=== PATIENT | female | born 1935 | race Caucasian/White ===

== ENCOUNTER → 2016-09-24 | Outpatient (CLI) | payer OTHER, BC ==
[~2016-09-24] MED LIST: ACET-1222 PO; APIX1TAB PO; ATOR-24 PO; ESTR1CRE PV; LANS30CA12 PO; LEVO100T PO; METO25TA56 PO; MULT60CA PO; NRN100; SENN-91 PO; VALS1TAB33 PO
== END | disposition home or self-care (01) ==
LOC: C.LABVPSUW 10:18
PROVIDERS: ATTEND Internal Medicine Critical Care Medicine
DX: E03.9 Hypothyroidism, unspecified (principal)

== ENCOUNTER → 2017-04-09 | Outpatient (CLI) | payer OTHER, BC ==
[~2017-04-09] MED LIST changes: -NRN100
[2017-04-09 12:11] LABS: URINE APPEARANCE CLOUDY (CLEAR); URINE BILIRUBIN NEG (NEG); URINE COLOR YELLOW; URINE NITRITE NEG (NEG); URINE SPECIFIC GRAVITY 1.008 (1.000-1.030); UROBILINOGEN NEG (NEG)
[2017-04-09 12:15] LABS: MANUAL MICROSCOPIC REQUIRED? NO; REVIEW REQ? NO
== END | disposition home or self-care (01) ==
LOC: C.LAB 11:04
PROVIDERS: ATTEND Nurse Practitioner
DX: R30.0 Dysuria (principal)

== ENCOUNTER → 2017-05-21 | Outpatient (CLI) | payer OTHER, BC | END | disposition home or self-care (01) | LOC: C.LABSPEC 17:02 | PROVIDERS: ATTEND Internal Medicine Critical Care Medicine | DX: Z00.00 Encounter for general adult medical examination without abnormal findings (principal); N39.0 Urinary tract infection, site not specified; R31.9 Hematuria, unspecified; E78.00 Pure hypercholesterolemia, unspecified; I10 Essential (primary) hypertension; E03.9 Hypothyroidism, unspecified; M81.0 Age-related osteoporosis without current pathological fracture ==

== ENCOUNTER → 2017-06-02 | Outpatient (CLI) | payer OTHER, BC | END | disposition home or self-care (01) | LOC: C.LABSPEC 17:33 | PROVIDERS: ATTEND Urology | DX: R31.0 Gross hematuria (principal) ==

== ENCOUNTER 2017-09-09 12:32 | Emergency (ER) | payer OTHER, BC ==
[~2017-09-09] VITALS: Ht 157.5 cm; Wt 60.0 kg
[2017-09-09 12:49] VITALS: TEMP 36.7; Ht 157.5 cm; Wt 60.0 kg
[2017-09-09] MEDS ORDERED: ACET-1256 PO (13:24)
[2017-09-09] MEDS ORDERED: DVN80125 PO (13:24)
[2017-09-09] MEDS ORDERED: MULT60CA PO (13:24)
[2017-09-09] MEDS ORDERED: SENN-91 PO (13:24)
[2017-09-09] MEDS ORDERED: ATOR-24 PO (13:24)
[2017-09-09] MEDS ORDERED: APIX1TAB PO (13:24)
[2017-09-09] MEDS ORDERED: METO25TA56 PO (13:24)
[2017-09-09] MEDS ORDERED: PRMVC PV (13:24)
[2017-09-09] MEDS ORDERED: LEVO88TA PO (13:24)
[2017-09-09] MEDS ORDERED: CALC600T37 PO (13:24)
[2017-09-09] MEDS ORDERED: PRLSR20 PO (13:24)
[2017-09-09] MEDS ORDERED: NYSTCRE11 TOP (13:24)
--- NOTE | 2017-09-09 13:41 | EMERGENCY ROOM VISIT NOTE ---
"History Report prepared by Gunnar: Bob Vizcaino Under the Supervision of: Dr. Freddy Stubbs M.D. First contact with patient: 13:25 Chief Complaint: FALL Stated Complaint: HEAD INJURY, FALL ON HARD SURFACE History of Present Illness The patient is a 82 year old female who presents to the Emergency Room with complaints of fall that occurred two days ago. She has a past medical history of atrial fibrillation without any other cardiac history. The patient and her go on walks very frequently. During one of their regular walks, she accidentally experienced a fall. She does not know why she fell, but she states that she did not lose consciousness or become weak. She did not experience any abnormal symptoms at this time. She did, however, land directly on her face on the concrete. Once she checked if she could move everything, her helped her up and they were able to walk a half mile back to their house. She notes that she is on Eliquis for her atrial fibrillation, but has not been taking it over this time just in case, until she could get checked. She denies any initial epistaxis as well. Last night, the patient blew her nose and saw some old looking blood and coughed up a few specks of blood, but nothing significant. She is experiencing some facial pain and left lower extremity pain secondary to an abrasion, but no significant pain. The patient denies any vision trouble, balance trouble, fevers, headache, neck pain, chest pain, shortness of breath, abdominal pain, back pain, pain to her other extremities, weakness, or numbness. Source of History: patient, spouse/significant other Onset: two days ago Position: other (Global) Symptom Intensity: mild Quality: other (Fall) Timing: resolved Associated Symptoms: No LOC, No fevers, No headache, No neck pain, No chest pain, No SOB, No abdominal pain, No back pain, No weakness, No numbness Note: She is experiencing some facial pain and left lower extremity pain secondary to her fall. She denies any other extremity pain. She denies any trouble with her balance or vision. Review of Systems See HPI for pertinent positives & negatives. A total of 10 systems reviewed and were otherwise negative. Past Medical & Surgical Medical Problems: (1) Atrial fibrillation with RVR (2) Hypertension Old medical records were reviewed. Nurse's notes were reviewed and I agree with. Family History Diabetes mellitus Heart disease Hypertension Social History Smoking Status: Former Smoker Drug Use: none Marital Status: Housing Status: lives with family Occupation Status: retired Current/Historical Medications Scheduled Amoxicillin & Pot Clavulanate (Augmentin 875-125 mg), 875 MG PO BID Apixaban (Eliquis), 2.5 MG PO BID Atorvastatin (Lipitor), 40 MG PO QPM Calcium (Calcium), 1,200 MG PO BID Estrogens, Conjugated (Premarin), 1 APPL PV Q2D Levothyroxine Sodium (Synthroid), 88 MCG PO DAILY Metoprolol Tartrate (Lopressor) (Lopressor), 12.5 MG PO DAILY Multiple Vitamins W/ Minerals (Preservision Areds 2), 1 CAP PO BID Omeprazole (Prilosec), 20 MG PO DAILY Valsartan/Hctz (Diovan Hct), 1 TAB PO DAILY Scheduled PRN Acetaminophen (Tylenol), 500-1,000 MG PO UD PRN for Pain Nystatin/Triamcinolone (Mycogen || ), 1 APPLN TOP UD PRN for UNDECIDED Sennosides-Docusate Sodium (Senna S), 1-2 TABS PO UD PRN for Constipation Allergies Coded Allergies: No Known Allergies (Verified , 09/09/17) Physical Exam Vital Signs Date Time Temp Pulse Resp B/P (MAP) Pulse Ox O2 Delivery O2 Flow Rate FiO2 09/09/17 16:05 67 143/83 92 09/09/17 14:10 66 18 126/73 95 Room Air 09/09/17 12:49 36.7 69 16 144/83 95 Physical Exam General: Non-ill appearing older female in no acute distress. HEENT: Normal cephalic. Bruise underneath the left eye. No hyphema. Pupils are equal round and reactive to light. Extraocular movements are intact. Oropharynx is pink with moist mucous membranes. No swelling of the mouth lips or tongue. Neck: Supple with a midline trachea. No meningeal signs or stiffness, no JVD or bruits. No Stridor. Chest: Clear to auscultation bilaterally. No wheezes or rhonchi. No increased work of breathing. Heart: regular rate and rhythm. Abdomen: Soft nontender, nondistended without rebound guarding or rigidity. Extremities: No cyanosis clubbing or edema. No calf tenderness or assymetry. There is a small abrasion to the left knee. Spine/Back. Non tender to palpation. No CVA tenderness Skin: Good turgor without rashes. Neurologic exam: Cranial nerves two through 12 are intact. Motor and sensation are intact and symmetrical throughout. GCS 15. Medical Decision & Procedures ER Provider Diagnostic Interpretation: Radiology results as stated below per my review and radiologist interpretation: FACIAL BONES-MXILLOFAC WITHOUT CLINICAL HISTORY: 82 years-old Female presenting with eval for trauma. Acute neck and face injury status post fall COMPARISON STUDY: CT cervical spine of same day TECHNIQUE: High-resolution CT scan of the facial bones is performed. Images are reviewed in the axial, sagittal, and coronal planes. IV contrast was not administered for this examination. A dose lowering technique was utilized adhering to the principles of ALARA. CT DOSE: 608.20 mGycm FINDINGS: The zygomatic arches, nasal bones, and pterygoid plates are preserved. The maxilla and mandible are intact. Mastoid air cells and middle ear cavities are clear. Mild layering hemorrhage is noted within the left maxillary antrum. There is an acute depressed fracture involving the floor of the left orbit with 7 mm inferomedial depression. No entrapment of the extraocular musculature identified. Mild left periorbital and left facial soft tissue swelling. The bilateral globes appear intact and are within normal limits. The imaged calvarium and upper cervical spine are within normal limits. Multilevel severe facet arthropathy with moderate uncovertebral spurring of the cervical spine. Mild cerebral atrophy. Severe intervertebral space narrowing at C6-C7. Moderate degenerative changes of the bilateral temporal mandibular joints. Partially imaged brain parenchyma is within normal limits. There is mild rightward bowing and spurring of the nasal septum. Moderate left stormy bullosa. IMPRESSION: 1. Mild left periorbital and left facial soft tissue swelling with acute depressed fracture of the left inferior orbital wall and mild layering hemorrhage of the left maxillary antrum. No evidence of associated extraocular muscular entrapment. 2. No additional acute facial bone fracture or dislocation. The above report was generated using voice recognition software. It may contain grammatical, syntax or spelling errors. Electronically signed by: Ricardo Romero M.D. 09/09/2017 2:21 PM Dictated Date/Time: 09/09/2017 2:13 PM HEAD WITHOUT CONTRAST (CT) CLINICAL HISTORY: 82 years-old Female presenting with eval for trauma fall, head injury. TECHNIQUE: Multidetector CT imaging of the head was performed without the use of intravenous contrast. IV contrast: None. A dose lowering technique was used consistent with the principles of ALARA (as low as reasonably achievable). COMPARISON: 11/21/2008. CT DOSE (mGy.cm): The estimated cumulative dose is 638.56 mGycm. FINDINGS: Chief Operating Engineer topogram: Unremarkable. Ventricles and sulci normal in size. Brain parenchyma normal in appearance with preserved qiu-white differentiation. No mass effect or midline shift. No hemorrhage or acute territorial infarct. No extra-axial fluid collection. Paranasal sinuses and mastoid air cells clear. Calvarium intact. IMPRESSION: 1. No acute intracranial abnormality. Electronically signed by: Fercho June M.D. 09/09/2017 2:13 PM Dictated Date/Time: 09/09/2017 2:11 PM CERVICAL SPINE W/O CT DOSE: 464.83 mGycm HISTORY: Trauma eval for trauma TECHNIQUE: Multiaxial CT images of the cervical spine were performed and reformatted in the sagittal and coronal plane without the use of contrast. A dose lowering technique was utilized adhering to the principles of ALARA. COMPARISON: None. FINDINGS: No fractures. No subluxation. Prevertebral soft tissues and the C1-C2 interval are intact. No pneumothorax. Moderate degenerative disc change primarily from C6 through C7 IMPRESSION: No fractures within the cervical spine. Moderate degenerative change of the low cervical spine. The above report was generated using voice recognition software. It may contain grammatical, syntax or spelling errors. Electronically signed by: David Mayo M.D. 09/09/2017 2:15 PM Dictated Date/Time: 09/09/2017 2:09 PM Laboratory Results 09/09/17 13:50 Red Blood Count 4.87, Mean Corpuscular Volume 87.9, Mean Corpuscular Hemoglobin 30.2, Mean Corpuscular Hemoglobin Concent 34.3, Mean Platelet Volume 10.0, Neutrophils (%) (Auto) 65.6, Lymphocytes (%) (Auto) 24.8, Monocytes (%) (Auto) 8.7, Eosinophils (%) (Auto) 0.4, Basophils (%) (Auto) 0.1, Neutrophils # (Auto) 4.89, Lymphocytes # (Auto) 1.85, Monocytes # (Auto) 0.65, Eosinophils # (Auto) 0.03, Basophils # (Auto) 0.01 09/09/17 13:50 Test 09/09/17 13:50 09/09/17 13:55 White Blood Count 7.46 K/uL (4.8-10.8) Red Blood Count 4.87 M/uL (4.2-5.4) Hemoglobin 14.7 g/dL (12.0-16.0) Hematocrit 42.8 % (37-47) Mean Corpuscular Volume 87.9 fL (80-100) Mean Corpuscular Hemoglobin 30.2 pg (25-34) Mean Corpuscular Hemoglobin Concent 34.3 g/dl (32-36) Platelet Count 202 K/uL (130-400) Mean Platelet Volume 10.0 fL (7.4-10.4) Neutrophils (%) (Auto) 65.6 % Lymphocytes (%) (Auto) 24.8 % Monocytes (%) (Auto) 8.7 % Eosinophils (%) (Auto) 0.4 % Basophils (%) (Auto) 0.1 % Neutrophils # (Auto) 4.89 K/uL (1.4-6.5) Lymphocytes # (Auto) 1.85 K/uL (1.2-3.4) Monocytes # (Auto) 0.65 K/uL (0.11-0.59) Eosinophils # (Auto) 0.03 K/uL (0-0.5) Basophils # (Auto) 0.01 K/uL (0-0.2) RDW Standard Deviation 44.3 fL (36.4-46.3) RDW Coefficient of Variation 13.7 % (11.5-14.5) Immature Granulocyte % (Auto) 0.4 % Immature Granulocyte # (Auto) 0.03 K/uL (0.00-0.02) Prothrombin Time 10.0 SECONDS (9.0-12.0) Prothromb Time International Ratio 1.0 (0.9-1.1) Activated Partial Thromboplast Time 23.3 SECONDS (21.0-31.0) Partial Thromboplastin Ratio 0.9 Anion Gap 9.0 mmol/L (3-11) Est Creatinine Clear Calc Drug Dose 55.3 ml/min Estimated GFR () 97.2 Estimated GFR (Non- 83.8 BUN/Creatinine Ratio 23.6 (10-20) Calcium Level 9.4 mg/dl (8.5-10.1) Total Bilirubin 0.4 mg/dl (0.2-1) Direct Bilirubin < 0.1 mg/dl (0-0.2) Aspartate Amino Transf (AST/SGOT) 15 U/L (15-37) Alanine Aminotransferase (ALT/SGPT) 26 U/L (12-78) Alkaline Phosphatase 60 U/L (45-117) Total Protein 7.2 gm/dl (6.4-8.2) Albumin 3.6 gm/dl (3.4-5.0) Lipase 162 U/L (73-393) Bedside Troponin I < 0.030 ng/ml (0-0.045) Laboratory studies as stated above per my review. Medications Administered Medications (Trade) Dose Ordered Sig/Taiwo Route Start Time Stop Time Status Last Admin Dose Admin Potassium Chloride (Klor-Con M10) 40 meq NOW STAT PO 09/09/17 15:25 09/09/17 15:26 DC 09/09/17 16:01 40 MEQ ECG Per My Interpretation Indication: other (Trauma) Rate (beats per minute): 84 Rhythm: normal sinus Findings: RBBB (incomplete), other (Anteriolateral t-wave abnormalities) Comparison ECG Date: Jul 19, 2016 Change: the t-wave abnormalities are more pronounced ED Course 1325: Past medical records reviewed. The patient was evaluated in room B8, and a complete history and physical examination were performed. 1525: Ordered Potassium Chloride 40 meq PO 1540: Upon reevaluation, the patient is resting. I discussed the results and treatment plan with her. She verbalized agreement of the treatment plan. The patient was discharged home. Medical Decision Differentials include, but are not limited to; intracranial hemorrhage, skull fracture, facial fracture, cervical spine injury, anemia, arrhythmia, and electrolyte or metabolic abnormality. This patient comes in as described above. She fell 2 days ago it sounds like it was a mechanical fall. she had no syncope, chest pain, or symptoms prior. she has felt okay since then with just a mild headache no blurry vision. There are no other complaints. no chest pain, shortness of breath, or palpitations. IV access established and blood work was obtained. She has no significant electrolyte or metabolic abnormalities. She is not significant anemic. she has nothing to suggest infection. CAT scan of her head shows no acute intracranial process. CAT scan of the face shows an inferior orbital rectus fracture. There is no evidence of entrapment on CT clinically. She is able to look up without any difficulty. There is no crepitus in the face. There is no hematoma in the nose or any nose bleeding. The cervical spine CT was negative. I will start her on Augmentin for antibiotic coverage. she is to avoid blowing her nose. I did have her follow-up with Dr. Cook or [place]. I recommended she follow-up with her regular doctor this week as well. Her EKG shows a right bundle which is new and the T-wave inversions are more prominent. I also recommend she follow -up with her regular doctor for this. I do not think this is new or causative of her fall. she had no chest pain or syncope or any other cardiac symptoms. She was happy with the plan and will be discharged to home. She was encouraged to return to the ER if any new problems or concerns. Medication Reconcilliation Current Medication List: was personally reviewed by me Blood Pressure Screening Patient's blood pressure: Elevated blood pressure Blood pressure disposition: Elevated BP felt to be situational Impression Primary Impression: Fall Additional Impressions: Left orbit fracture Contusion of left knee Scribe Attestation The scribe's documentation has been prepared under my direction and personally reviewed by me in its entirety. I confirm that the note above accurately reflects all work, treatment, procedures, and medical decision making performed by me. Departure Information Dispostion Home / Self-Care Prescriptions Amoxicillin & Pot Clavulanate (Augmentin 875-125 mg) 1 Tab Tab 875 MG PO BID for 10 Days, #20 TAB Prov: Freddy Stubbs M.D. 09/09/17 Referrals Fercho Castellon M.D. (PCP) Faustino Cook D.D.S. Forms HOME CARE DOCUMENTATION FORM, IMPORTANT VISIT INFORMATION Patient Instructions My [facility] Additional Instructions Rest. Drink plenty of fluids. Avoid blowing her nose. Increase her dietary potassium Use Augmentin 875 mg twice a day for 10 daysantibiotic Follow-up with oral facial surgeon Dr. Cook or [place] this week for recheck Follow-up with Dr. Castellon this week for recheck. Hold your Eliquis the next 1- 2 days until you talk to Dr. Castellon Return to the ER for increasing pain, worsening symptoms, chest pain, shortness breath, any new problems or concerns. Problem Qualifiers Primary Impression: Fall Encounter type: initial encounter Qualified Codes: W19.XXXA - Unspecified fall, initial encounter Additional Impressions: Left orbit fracture Encounter type: initial encounter Fracture type: closed Qualified Codes: S02.82XA - Fracture of other specified skull and facial bones, left side, initial encounter for closed fracture Contusion of left knee Encounter type: initial encounter Qualified Codes: S80.02XA - Contusion of left knee, initial encounter"
[2017-09-09 14:04] LABS: BASO % 0.1 %; BASO ABS # 0.01 K/uL (0-0.2); EOS % 0.4 %; EOS ABS # 0.03 K/uL (0-0.5); HEMATOCRIT 42.8 % (37-47); HEMOGLOBIN 14.7 g/dL (12.0-16.0); IG# 0.03 K/uL (0.00-0.02); LYMPH % 24.8 %; LYMPH ABS # 1.85 K/uL (1.2-3.4); MEAN CELL VOLUME 87.9 fL (80-100); MEAN CORPUSCULAR HEMOGLOBIN 30.2 pg (25-34); MEAN CORPUSCULAR HGB CONC 34.3 g/dl (32-36); MONO % 8.7 %; MONO ABS # 0.65 K/uL (0.11-0.59); NEUT % 65.6 %; NEUT ABS # 4.89 K/uL (1.4-6.5); PLATELET COUNT 202 K/uL (130-400); RED CELL DISTRIBUTION WIDTH CV 13.7 % (11.5-14.5); RED CELL DISTRIBUTION WIDTH SD 44.3 fL (36.4-46.3); WHITE BLOOD COUNT 7.46 K/uL (4.8-10.8)
[2017-09-09 14:13] LABS: PTT PATIENT 23.3 SECONDS (21.0-31.0)
--- NOTE | 2017-09-09 14:15 | DIAGNOSTIC IMAGING REPORT ---
HEAD WITHOUT CONTRAST (CT) CLINICAL HISTORY: 82 years-old Female presenting with eval for trauma fall, head injury. TECHNIQUE: Multidetector CT imaging of the head was performed without the use of intravenous contrast. IV contrast: None. A dose lowering technique was used consistent with the principles of ALARA (as low as reasonably achievable). COMPARISON: 11/21/2008. CT DOSE (mGy.cm): The estimated cumulative dose is 638.56 mGycm. FINDINGS: Cigarette Machine Filler topogram: Unremarkable. Ventricles and sulci normal in size. Brain parenchyma normal in appearance with preserved qiu-white differentiation. No mass effect or midline shift. No hemorrhage or acute territorial infarct. No extra-axial fluid collection. Paranasal sinuses and mastoid air cells clear. Calvarium intact. IMPRESSION: 1. No acute intracranial abnormality. Electronically signed by: Fercho June M.D. 09/09/2017 2:13 PM Dictated Date/Time: 09/09/2017 2:11 PM
--- NOTE | 2017-09-09 14:17 | DIAGNOSTIC IMAGING REPORT ---
CERVICAL SPINE W/O CT DOSE: 464.83 mGycm HISTORY: Trauma eval for trauma TECHNIQUE: Multiaxial CT images of the cervical spine were performed and reformatted in the sagittal and coronal plane without the use of contrast. A dose lowering technique was utilized adhering to the principles of ALARA. COMPARISON: None. FINDINGS: No fractures. No subluxation. Prevertebral soft tissues and the C1-C2 interval are intact. No pneumothorax. Moderate degenerative disc change primarily from C6 through C7 IMPRESSION: No fractures within the cervical spine. Moderate degenerative change of the low cervical spine. The above report was generated using voice recognition software. It may contain grammatical, syntax or spelling errors. Electronically signed by: David Mayo M.D. 09/09/2017 2:15 PM Dictated Date/Time: 09/09/2017 2:09 PM
--- NOTE | 2017-09-09 14:22 | DIAGNOSTIC IMAGING REPORT ---
FACIAL BONES-MXILLOFAC WITHOUT CLINICAL HISTORY: 82 years-old Female presenting with eval for trauma. Acute neck and face injury status post fall COMPARISON STUDY: CT cervical spine of same day TECHNIQUE: High-resolution CT scan of the facial bones is performed. Images are reviewed in the axial, sagittal, and coronal planes. IV contrast was not administered for this examination. A dose lowering technique was utilized adhering to the principles of ALARA. CT DOSE: 608.20 mGycm FINDINGS: The zygomatic arches, nasal bones, and pterygoid plates are preserved. The maxilla and mandible are intact. Mastoid air cells and middle ear cavities are clear. Mild layering hemorrhage is noted within the left maxillary antrum. There is an acute depressed fracture involving the floor of the left orbit with 7 mm inferomedial depression. No entrapment of the extraocular musculature identified. Mild left periorbital and left facial soft tissue swelling. The bilateral globes appear intact and are within normal limits. The imaged calvarium and upper cervical spine are within normal limits. Multilevel severe facet arthropathy with moderate uncovertebral spurring of the cervical spine. Mild cerebral atrophy. Severe intervertebral space narrowing at C6-C7. Moderate degenerative changes of the bilateral temporal mandibular joints. Partially imaged brain parenchyma is within normal limits. There is mild rightward bowing and spurring of the nasal septum. Moderate left stormy bullosa. IMPRESSION: 1. Mild left periorbital and left facial soft tissue swelling with acute depressed fracture of the left inferior orbital wall and mild layering hemorrhage of the left maxillary antrum. No evidence of associated extraocular muscular entrapment. 2. No additional acute facial bone fracture or dislocation. The above report was generated using voice recognition software. It may contain grammatical, syntax or spelling errors. Electronically signed by: Ricardo Romero M.D. 09/09/2017 2:21 PM Dictated Date/Time: 09/09/2017 2:13 PM
[2017-09-09 14:25] LABS: ALBUMIN 3.6 gm/dl (3.4-5.0); ALT/SGPT 26 U/L (12-78); BLOOD UREA NITROGEN 14 mg/dl (7-18); CALCIUM 9.4 mg/dl (8.5-10.1); CARBON DIOXIDE 26 mmol/L (21-32); CREATININE 0.61 mg/dl (0.60-1.20); GLUCOSE 122 mg/dl (70-99); LIPASE 162 U/L (73-393); POTASSIUM 3.2 mmol/L (3.5-5.1); SODIUM 136 mmol/L (136-145)
[2017-09-09 14:28] LABS: ALKALINE PHOSPHATASE 60 U/L (45-117); AST/SGOT 15 U/L (15-37); TOTAL PROTEIN 7.2 gm/dl (6.4-8.2)
[2017-09-09] MEDS ORDERED: POTASSIUM CHLORIDE 10 MEQ TABCR PO STA (15:25)
[2017-09-09] MEDS ORDERED: AMOX875T PO (15:33)
[2017-09-09 16:05] VITALS: BP 143/83; PULSE 67; O2SAT 92
== END 2017-09-09 16:05 | disposition home or self-care (01) ==
LOC: C.EDB 12:33
DX: S80.02XA Contusion of left knee, initial encounter (principal); S02.82XA Fracture of other specified skull and facial bones, left side, initial encounter for closed fracture; W19.XXXA Unspecified fall, initial encounter; Y92.89 Other specified places as the place of occurrence of the external cause; I48.91 Unspecified atrial fibrillation; I10 Essential (primary) hypertension; Z83.3 Family history of diabetes mellitus; Z82.49 Family history of ischemic heart disease and other diseases of the circulatory system; Z87.891 Personal history of nicotine dependence; Z79.01 Long term (current) use of anticoagulants; Z79.899 Other long term (current) drug therapy

== ENCOUNTER → 2017-09-28 | Outpatient (CLI) | payer OTHER, BC ==
[~2017-09-28] MED LIST changes: -ACET-1222 PO; +ACET-1256 PO; +CALC600T37 PO; +DVN80125 PO; -ESTR1CRE PV; -LANS30CA12 PO; -LEVO100T PO; +LEVO88TA PO; +NYSTCRE11 TOP; +PRLSR20 PO; +PRMVC PV; -VALS1TAB33 PO
[2017-09-28 09:32] LABS: BLOOD UREA NITROGEN 13 mg/dl (7-18); CALCIUM 9.6 mg/dl (8.5-10.1); CARBON DIOXIDE 28 mmol/L (21-32); CREATININE 0.61 mg/dl (0.60-1.20); GLUCOSE 92 mg/dl (70-99); POTASSIUM 3.7 mmol/L (3.5-5.1); SODIUM 136 mmol/L (136-145)
== END | disposition home or self-care (01) ==
LOC: C.LABVPSUW 09:01
PROVIDERS: ATTEND Internal Medicine Critical Care Medicine
DX: E03.9 Hypothyroidism, unspecified (principal); I10 Essential (primary) hypertension